=== PATIENT | female | born 1970 | race Caucasian/White ===

== ENCOUNTER 2017-05-01 12:31 | Inpatient (IN) | payer OTHER ==
[~2017-05-01] VITALS: Ht 165.1 cm; Wt 67.5 kg
[~2017-05-01 12:31] MED LIST: AMOXICILLIN250 MG PO; ASPIR 8181 M1 PO; ATIVAN0.5 MG PO; ATROVENT 00.5 MG/2.5 IH; Aspirin E.C. PO; BACTRIM,SEPT1 TABLET PO; BUTALB-CAFF-AC1 EACH PO; CENTANY30 GM TP; CLONAZEPAM0.5 MG PO; COUGH SYRU100 MG/5 M PO; Cipro PO; DAILY VITE1 EAC1 PO; DEPAKOTE ER500 MG PO; DEPAKOTE250 MG PO; DEPAKOTE500 MG PO; DILAUDID4 MG PO; DITROPAN XL15 MG PO; DIVALPROEX SOD500 M1 PO; DULCOLAX10 MG PR; DUONEB 2.5-0.5 M3 ML IH; FIORICET 50-301 EACH PO; FIORICET,ESG1 TABLET PO; FLEET ENEMA-AD118 ML PR; FLOMAX0.4 MG PO; FLONASE16 G1 BOTH NARES; FLORASTOR250 MG PO; Feosol PO; Flonase BOTH NARES; GABAPENTIN300 MG PO; GLUCOPHAGE1000 MG PO; Glucophage PO; HYDROCODON-ACE1 EAC7 PO; IBUPROFEN600 MG PO; IMITREX100 MG PO; IPRATR-ALBUTEROL3 ML AEROSOL; IPRATROPIU0.2 MG/1 M IH; IRON325 MG PO; LANTUS 10100 UNITS/ SC; LANTUS 3 M100 UNITS1 SC; LEVAQUIN500 MG PO; LEXAPRO10 MG PO; LORAZEPAM1 MG PO; MAALOX ADVANCE355 ML PO; MILK OF MAGN PO; MIRTAZAPINE15 MG PO; MIRTAZAPINE45 MG PO; MORPHINE SULFAT15 M1 PO; MUCUS RELIEF600 M1 PO; MYCOSTATIN 100,60 ML PO; NEURONTIN300 MG PO; NOVOLOG 10100 UNITS/ SC; Neurontin PO; ONGLYZA5 MG PO; PHILLIPS'400 MG/5 M PO; PREDNISONE5 MG PO; PRILOSEC20 MG PO; PROMETHAZINE HC25 M1 PO; PROTONIX20 MG PO; PROVENTIL HFA6.7 GM IH; PROVENTIL,2.5 MG/3 M IH; PROZAC20 MG PO; PROzac PO; PYRIDIUM200 MG PO; RELAFEN500 M1 PO; SERTRALINE HCL100 MG PO; SERTRALINE HCL50 MG PO; SINGULAIR10 MG PO; SPIRIVA1 INHALATI IH; ST. JOSEPH ASPI81 MG PO; Singulair PO; TESSALON PERLE100 MG PO; TRILAFON4 MG PO; TYLENOL REGULA325 MG PO; VALTREX50 MG/ML PO; ValTRex PO; ZESTRIL5 MG PO; ZOLPIDEM TARTRAT5 MG PO; Zestril,Prinivil PO; predniSONE PO
[2017-05-01 14:05] LABS: BASOPHIL COUNT 0.1 K/uL (0-0.1); EOSINOPHIL (%) 1.3 % (0-5); EOSINOPHIL COUNT 0.1 K/uL (0-0.3); IMMATURE GRANULOCYTE (%) 0.8 % (0.0-0.7); IMMATURE GRANULOCYTE COUNT 0.1 K/uL; INSTRUMENT ABS NEUTROPHIL CT 5.9 K/uL; LYMPHOCYTE COUNT 1.2 K/uL (1.0-2.8); MCH 29.6 PG (29.0-34.0); MCHC 30.8 G/DL (30.0-36.0); MCV 96.2 FL (83-99); MEAN PLAT.VOLUME 10.1 uM^3 (9.5-12.4); MONOCYTE (%) 1.2 % (3-12); MONOCYTE COUNT 0.1 K/uL (0-0.8); NEUTROPHIL (%) 79.8 % (45-76); NEUTROPHIL COUNT 5.9 K/uL (1.8-6.4); PLATELET COUNT 169 K/uL (156-360); RBC DIS.WIDTH-CV 13.8 % (11.8-14.6); RBC DIS.WIDTH-SD 48.6 % (39-53); RED BLOOD COUNT 3.95 M/uL (3.80-5.20); WHITE BLOOD COUNT 7.4 K/uL (4.1-10.2)
[2017-05-01 14:14] LABS: CHLORIDE 106 mEq/L (99-109); SODIUM 143 mEq/L (136-147)
[2017-05-01 14:16] LABS: GLUCOSE 117 mg/dL (70-99)
[2017-05-01 14:17] LABS: ANION GAP 9 MEQ/L (2-14)
[2017-05-01 14:18] LABS: TOTAL BILIRUBIN 0.2 mg/dL (0.0-1.0)
[2017-05-01 14:20] LABS: ALKALINE PHOSPHATASE 78 IU/L (3-129); GFR ESTIMATE (CALCULATED) > 59 mL/min/
[2017-05-01 14:21] LABS: UREA NITROGEN (BUN) 25 mg/dL (9-23)
[2017-05-01 14:26] LABS: TROP-I INTERPRETATION NEGATIVE; TROPONIN-I < 0.01 ng/mL (0.0-0.30)
[2017-05-01 15:34] LABS: ADD MIUA? YES; BILIRUBIN SMALL; BLOOD NEGATIVE; COLOR YELLOW ((YELLOW)); GLUCOSE (STRIP) NEGATIVE; KETONES 5; LEUKOCYTES TRACE; NITRITE NEGATIVE; PROTEIN (STRIP) NEGATIVE; SPECIFIC GRAVITY 1.028 (1.000-1.030); UROBILINOGEN 0.2 MG/DL (0.2-1.0)
[2017-05-01 15:48] LABS: BACTERIA RARE /HPF; EPITHELIAL CELLS 1+ /HPF; HYALINE CASTS 0-5 /LPF; MUCUS TRACE /LPF; RED BLOOD CELLS 0-5 /HPF (0-5); WHITE BLOOD CELLS 0-5 /HPF (0-5)
[2017-05-01 18:10] VITALS: BP 160/106
[2017-05-01 19:35] VITALS: BP 153/99
[2017-05-01] MEDS ORDERED: MELATIN3 MG PO (19:36)
[2017-05-01] MEDS ORDERED: PRILOSEC20 MG PO (19:37)
[2017-05-01] MEDS ORDERED: SPIRIVA18 MCG IH (19:39)
[2017-05-01] MEDS ORDERED: TOPAMAX100 MG PO (19:40)
[2017-05-01] MEDS ORDERED: ZOLOFT50 MG PO (19:41)
[2017-05-01] MEDS ORDERED: EXCEDRIN EXTRA1 EACH PO (19:43)
[2017-05-01] MEDS ORDERED: NEURONTIN100 MG PO (19:45)
[2017-05-01] MEDS ORDERED: IBUPROFEN400 MG PO (19:47)
[2017-05-01] MEDS ORDERED: TESSALON200 MG PO (19:48)
[2017-05-01] MEDS ORDERED: ADVAIR 100/501 DISK IH (19:48)
[2017-05-01] MEDS ORDERED: [UNRECOGNIZED DRUG - OTHER] PO (19:50)
[2017-05-01] MEDS ORDERED: MELOXICAM7.5 MG PO (19:53)
[2017-05-01] MEDS ORDERED: MUPIROCIN22 GM TP (19:56)
[2017-05-01 20:41] LABS: TROP-I INTERPRETATION NEGATIVE; TROPONIN-I < 0.01 ng/mL (0.0-0.30)
[2017-05-01 21:35] LABS: POINT-OF-CARE METER ID UU14188625
[2017-05-01 23:37] VITALS: BP 128/94
[2017-05-02 03:38] VITALS: BP 130/92
[2017-05-02 04:16] LABS: TROP-I INTERPRETATION NEGATIVE; TROPONIN-I < 0.01 ng/mL (0.0-0.30)
[2017-05-02 07:30] LABS: POINT-OF-CARE METER ID UU14188625
[2017-05-02 08:08] VITALS: BP 160/92
[2017-05-02 11:35] VITALS: BP 150/99
[2017-05-02 12:37] LABS: POINT-OF-CARE METER ID UU14188625
[2017-05-02 15:43] VITALS: BP 154/95
[2017-05-02 17:11] LABS: POINT-OF-CARE METER ID UU14188625
[2017-05-02 19:37] LABS: METH RESISTANT S AUREUS PCR NEGATIVE (NEGATIVE)
[2017-05-02 19:56] LABS: PROBE CHECK PASS; SPECIMEN PROCESSING CONTROL PASS
[2017-05-02 20:33] VITALS: BP 159/84
[2017-05-02 21:49] LABS: POINT-OF-CARE METER ID UU13113717
[2017-05-02 23:50] VITALS: BP 136/91
[2017-05-03 04:13] VITALS: BP 155/93
[2017-05-03 07:34] VITALS: BP 167/75
[2017-05-03 07:50] LABS: POINT-OF-CARE METER ID UU13113717
[2017-05-03 11:13] VITALS: BP 142/84
[2017-05-03 12:10] LABS: POINT-OF-CARE METER ID UU13113717
[2017-05-03 15:11] VITALS: BP 132/85
[2017-05-03 16:12] LABS: POINT-OF-CARE METER ID UU14188625
[2017-05-03 20:02] VITALS: BP 150/97
[2017-05-03 21:27] LABS: POINT-OF-CARE METER ID UU14188625
[2017-05-04 00:12] VITALS: BP 148/86
[2017-05-04 07:31] VITALS: BP 146/90
[2017-05-04 08:19] LABS: POINT-OF-CARE METER ID UU13113717
[2017-05-04 12:09] LABS: POINT-OF-CARE METER ID UU13113717
[2017-05-04 16:22] VITALS: BP 146/75
[2017-05-04 16:39] LABS: POINT-OF-CARE METER ID UU13113717
[2017-05-04 21:42] LABS: POINT-OF-CARE METER ID UU13113717
[2017-05-05 03:58] VITALS: BP 137/98
[2017-05-05 07:32] VITALS: BP 131/85
[2017-05-05 07:48] LABS: POINT-OF-CARE METER ID UU13113717
[2017-05-05 10:01] LABS: ANION GAP 10 MEQ/L (2-14); CHLORIDE 97 MEQ/L (99-109); GFR ESTIMATE (CALCULATED) > 59 mL/min/; GLUCOSE 115 mg/dL (70-99); POTASSIUM 4.5 MEQ/L (3.7-5.4); SAMPLE HEMOLYSIS CHECK 0; SAMPLE ICTERIC CHECK 0; SAMPLE LIPEMIA CHECK 0; SODIUM 140 MEQ/L (136-147); UREA NITROGEN (BUN) 30 mg/dL (9-23)
[2017-05-05 11:01] LABS: HEMATOCRIT 38.6 % (36.0-46.0); MCH 29.2 PG (29.0-34.0); MCHC 30.8 G/DL (30.0-36.0); MCV 94.6 FL (83-99); MEAN PLAT.VOLUME 10.7 uM^3 (9.5-12.4); PLATELET COUNT 191 K/uL (156-360); RBC DIS.WIDTH-CV 13.9 % (11.8-14.6); RED BLOOD COUNT 4.08 M/uL (3.80-5.20); WHITE BLOOD COUNT 14.3 K/uL (4.1-10.2)
[2017-05-05 16:20] VITALS: BP 112/68
[2017-05-05 17:41] LABS: POINT-OF-CARE METER ID UU14188625
[2017-05-05 19:41] VITALS: BP 118/80
[2017-05-05 23:42] VITALS: BP 130/91
[2017-05-06 04:00] VITALS: BP 130/91
[2017-05-06 07:44] LABS: POINT-OF-CARE METER ID UU14188625
[2017-05-06 07:48] VITALS: BP 164/100
[2017-05-06 11:48] LABS: POINT-OF-CARE METER ID UU14188625
[2017-05-06 15:50] VITALS: BP 125/73
[2017-05-06 16:59] LABS: POINT-OF-CARE METER ID UU14188625
[2017-05-06 23:47] VITALS: BP 126/76
[2017-05-07 06:38] LABS: EOSINOPHIL (%) 0.5 % (0-5); EOSINOPHIL COUNT 0.1 K/uL (0-0.3); HEMATOCRIT 35.2 % (36.0-46.0); IMMATURE GRANULOCYTE (%) 2.6 % (0.0-0.7); IMMATURE GRANULOCYTE COUNT 0.3 K/uL; INSTRUMENT ABS NEUTROPHIL CT 4.3 K/uL; LYMPHOCYTE COUNT 4.7 K/uL (1.0-2.8); MCH 29.6 PG (29.0-34.0); MCHC 30.7 G/DL (30.0-36.0); MCV 96.4 FL (83-99); MEAN PLAT.VOLUME 10.4 uM^3 (9.5-12.4); MONOCYTE (%) 9.9 % (3-12); NEUTROPHIL (%) 41.5 % (45-76); NEUTROPHIL COUNT 4.3 K/uL (1.8-6.4); PLATELET COUNT 177 K/uL (156-360); RBC DIS.WIDTH-CV 13.9 % (11.8-14.6); RBC DIS.WIDTH-SD 48.8 % (39-53); RED BLOOD COUNT 3.65 M/uL (3.80-5.20); WHITE BLOOD COUNT 10.4 K/uL (4.1-10.2)
[2017-05-07 07:01] LABS: ANION GAP 6 MEQ/L (2-14); CHLORIDE 97 MEQ/L (99-109); GFR ESTIMATE (CALCULATED) > 59 mL/min/; GLUCOSE 70 mg/dL (70-99); POTASSIUM 3.9 MEQ/L (3.7-5.4); SAMPLE HEMOLYSIS CHECK 0; SAMPLE ICTERIC CHECK 0; SAMPLE LIPEMIA CHECK 0; SODIUM 141 MEQ/L (136-147); UREA NITROGEN (BUN) 33 mg/dL (9-23)
[2017-05-07 08:01] VITALS: BP 106/78
[2017-05-07 11:51] LABS: POINT-OF-CARE METER ID UU14188625
[2017-05-07] MEDS ORDERED: PREDNISONE20 MG PO (12:12)
[2017-05-07] MEDS ORDERED: DOXYCYCLINE HY100 M3 PO (12:12)
[2017-05-07 17:11] LABS: POINT-OF-CARE METER ID UU14188625
== END 2017-05-07 18:42 | DRG 190 ==
LOC: EME 12:31 → EDOF 15:39 → 5SOUTH 15:39 → ENRESERV 15:47 → 5SOUTH 17:59
PROVIDERS: Emergency Medicine; Hospitalist; Internal Medicine; Nurse Practitioner Adult Health; Physician Assistant
DX: J44.0 Chronic obstructive pulmonary disease with (acute) lower respiratory infection (principal); J44.1 Chronic obstructive pulmonary disease with (acute) exacerbation; J96.21 Acute and chronic respiratory failure with hypoxia; Z99.81 Dependence on supplemental oxygen; F79 Unspecified intellectual disabilities; F41.9 Anxiety disorder, unspecified; Z87.891 Personal history of nicotine dependence; K21.9 Gastro-esophageal reflux disease without esophagitis; J20.9 Acute bronchitis, unspecified; E11.9 Type 2 diabetes mellitus without complications; Z79.4 Long term (current) use of insulin; R91.1 Solitary pulmonary nodule; G40.909 Epilepsy, unspecified, not intractable, without status epilepticus; E66.3 Overweight; Z68.24 Body mass index [BMI] 24.0-24.9, adult; F33.2 Major depressive disorder, recurrent severe without psychotic features; E78.5 Hyperlipidemia, unspecified; R45.851 Suicidal ideations; Z85.6 Personal history of leukemia; Z90.710 Acquired absence of both cervix and uterus; Z91.19 Patient's noncompliance with other medical treatment and regimen
CPT/HCPCS: 71010; 71260; 80048; 80053; 81003; 82948; 83880; 84484; 85025; 85027; 87040; 87070; 87077; 87186; 87205; 87641; 90686; 93005; 93306; 94640; 94640 76; 94644; 94667; 94668; 94799; 99202; 99281; 99285; J1650; J1815; J1956; J2920; J2930; J7512; J7644; Q0169

== ENCOUNTER 2017-05-07 15:38 | Inpatient (IN) | payer OTHER ==
[~2017-05-07] VITALS: Ht 165.1 cm; Wt 50.0 kg
[~2017-05-07 15:38] MED LIST changes: +ADVAIR 100/501 DISK IH; +DOXYCYCLINE HY100 M3 PO; +EXCEDRIN EXTRA1 EACH PO; +IBUPROFEN400 MG PO; +MELATIN3 MG PO; +MELOXICAM7.5 MG PO; +MUPIROCIN22 GM TP; +NEURONTIN100 MG PO; +PREDNISONE20 MG PO; +SPIRIVA18 MCG IH; +TESSALON200 MG PO; +TOPAMAX100 MG PO; +ZOLOFT50 MG PO; +[UNRECOGNIZED DRUG - OTHER] PO
[2017-05-07 18:59] VITALS: BP 132/95
[2017-05-07 19:03] VITALS: BP 132/95
[2017-05-07 20:37] LABS: POINT-OF-CARE METER ID UU14188576; POINT-OF-CARE USER ID ENVTLS63
[2017-05-08 06:35] LABS: POINT-OF-CARE METER ID UU14188576; POINT-OF-CARE USER ID ENVTLS63
[2017-05-08 07:41] VITALS: BP 130/81
[2017-05-08 11:57] LABS: POINT-OF-CARE METER ID UU14188576
[2017-05-08 15:24] VITALS: BP 130/69
[2017-05-08 16:43] LABS: POINT-OF-CARE METER ID UU14188576; POINT-OF-CARE USER ID BHSMEW
[2017-05-08 20:46] LABS: POINT-OF-CARE METER ID UU14188576; POINT-OF-CARE USER ID BHSMEW
[2017-05-09 06:43] LABS: POINT-OF-CARE METER ID UU14188576
[2017-05-09 12:26] LABS: POINT-OF-CARE METER ID UU14188576
[2017-05-09 15:50] VITALS: BP 134/75
[2017-05-09 17:15] LABS: POINT-OF-CARE METER ID UU14188576
[2017-05-09 20:38] LABS: POINT-OF-CARE METER ID UU14188576; POINT-OF-CARE USER ID ENVTLS63
[2017-05-10 06:23] LABS: POINT-OF-CARE METER ID UU14188576; POINT-OF-CARE USER ID ENVTLS63
[2017-05-10 06:41] LABS: POINT-OF-CARE METER ID UU14188576; POINT-OF-CARE USER ID ENVTLS63
[2017-05-10 07:11] LABS: POINT-OF-CARE METER ID UU14188576; POINT-OF-CARE USER ID ENVTLS63
[2017-05-10 07:43] VITALS: BP 126/68
[2017-05-10 15:54] VITALS: BP 108/72
[2017-05-10 21:35] LABS: POINT-OF-CARE METER ID UU14188576; POINT-OF-CARE USER ID ENVTLS63
[2017-05-11 06:18] LABS: POINT-OF-CARE METER ID UU14188576; POINT-OF-CARE USER ID ENVTLS63
[2017-05-11 09:21] VITALS: BP 99/66
[2017-05-11 12:01] LABS: POINT-OF-CARE METER ID UU14188576
[2017-05-11 15:33] VITALS: BP 102/63
[2017-05-11 17:05] LABS: POINT-OF-CARE METER ID UU14188576
[2017-05-11 20:41] LABS: POINT-OF-CARE METER ID UU14188576; POINT-OF-CARE USER ID BHSSMG
[2017-05-12 06:47] LABS: POINT-OF-CARE METER ID UU14188576
[2017-05-12 07:41] LABS: POINT-OF-CARE METER ID UU14188576
[2017-05-12 08:08] VITALS: BP 118/72
[2017-05-12] MEDS ORDERED: SERTRALINE HCL100 MG PO (09:02)
== END 2017-05-12 10:56 | DRG 885 ==
LOC: 1WEST 15:38 → ENRESERV 18:06 → 1WEST 18:47
PROVIDERS: Psychiatry & Neurology Psychiatry
DX: F33.2 Major depressive disorder, recurrent severe without psychotic features (principal); F43.23 Adjustment disorder with mixed anxiety and depressed mood; Z68.1 Body mass index [BMI] 19.9 or less, adult; K21.9 Gastro-esophageal reflux disease without esophagitis; R45.851 Suicidal ideations; J44.9 Chronic obstructive pulmonary disease, unspecified; E11.9 Type 2 diabetes mellitus without complications; Z99.81 Dependence on supplemental oxygen; Z87.891 Personal history of nicotine dependence; Z79.4 Long term (current) use of insulin
CPT/HCPCS: 82948; 94640; 94640 76; 94799; 97150 GO; 97165 GO; 99202

== ENCOUNTER 2018-01-21 19:27 | Inpatient (IN) | payer OTHER ==
[~2018-01-21] VITALS: Ht 165.1 cm; Wt 65.9 kg
[~2018-01-21 19:27] MED LIST changes: +IBUPROFEN200 M1 PO; -IBUPROFEN400 MG PO
[2018-01-21 20:15] LABS: HEMATOCRIT 37.4 % (36.0-46.0); MCH 28.9 PG (29.0-34.0); MCHC 32.1 G/DL (30.0-36.0); MCV 90.1 FL (83-99); PLATELET COUNT 132 K/uL (156-360); RBC DIS.WIDTH-CV 18.8 % (11.8-14.6); RBC DIS.WIDTH-SD 62.4 % (39-53); RED BLOOD COUNT 4.15 M/uL (3.80-5.20); WHITE BLOOD COUNT 7.8 K/uL (4.1-10.2)
[2018-01-21 20:26] LABS: CHLORIDE 100 mEq/L (99-109); POTASSIUM 4.8 mEq/L (3.7-5.4); SODIUM 141 mEq/L (136-147)
[2018-01-21 20:28] LABS: GLUCOSE 103 mg/dL (70-99)
[2018-01-21 20:32] LABS: CREATININE 0.7 mg/dL (0.6-1.3); GFR ESTIMATE (CALCULATED) > 59 mL/min/
[2018-01-21 20:33] LABS: UREA NITROGEN (BUN) 27 mg/dL (9-23)
[2018-01-21 20:36] LABS: TROP-I INTERPRETATION NEGATIVE; TROPONIN-I 0.02 ng/mL (0.0-0.30)
[2018-01-21] MEDS ORDERED: DEPAKOTE ER500 MG PO (21:33)
[2018-01-21] MEDS ORDERED: NOVOLOG PE100 UNITS/ SC (21:37)
[2018-01-21] MEDS ORDERED: TRAZODONE HCL50 MG PO (21:39)
[2018-01-21] MEDS ORDERED: PROVENTIL HFA6.7 GM IH (21:40)
[2018-01-21] MEDS ORDERED: SEROQUEL50 MG PO (21:41)
[2018-01-21] MEDS ORDERED: SEROQUEL12.5 MG PO (21:42)
[2018-01-21] MEDS ORDERED: CLONAZEPAM0.5 MG PO (21:43)
[2018-01-21] MEDS ORDERED: BUTALBITAL-APA1 EACH PO (21:45)
[2018-01-21] MEDS ORDERED: CYMBALTA60 MG PO (21:46)
[2018-01-21] MEDS ORDERED: NICODERM CQ1 EACH TD (21:47)
[2018-01-21] MEDS ORDERED: DUONEB 2.5-0.5 M3 ML AEROSOL (21:48)
[2018-01-21] MEDS ORDERED: FERROUS SULFAT325 MG PO (21:49)
[2018-01-21] MEDS ORDERED: IBUPROFEN600 MG PO (21:50)
[2018-01-21] MEDS ORDERED: LYRICA50 MG PO (21:51)
[2018-01-21] MEDS ORDERED: CYMBALTA30 MG PO (21:51)
[2018-01-21] MEDS ORDERED: SILVADENE20 GM TP (21:52)
[2018-01-21] MEDS ORDERED: BACTRIM,SEPT1 TABLET PO (21:52)
[2018-01-21 22:48] LABS: ALBUMIN 4.2 g/dL (3.2-4.8)
[2018-01-21 22:51] LABS: TOTAL PROTEIN 7.2 g/dL (6.4-8.3)
[2018-01-21 22:53] LABS: TOTAL BILIRUBIN 0.1 mg/dL (0.0-1.0)
[2018-01-21 22:54] LABS: ALKALINE PHOSPHATASE 90 IU/L (3-129)
[2018-01-21 22:56] LABS: AST (GOT) 21 IU/L (2-34)
[2018-01-21 22:57] LABS: D-DIMER ELISA < 150.00 ng/mLDDU (<230); LIPASE 14 U/L (1.0-51.0)
[2018-01-21 22:59] LABS: ALT (GPT) 26 IU/L (3-49)
[2018-01-22 00:28] VITALS: BP 118/79
[2018-01-22 03:23] LABS: TROP-I INTERPRETATION NEGATIVE; TROPONIN-I < 0.01 ng/mL (0.0-0.30)
[2018-01-22 05:21] VITALS: BP 123/76
[2018-01-22 08:00] VITALS: BP 124/83
[2018-01-22 08:31] LABS: HEMATOCRIT 37.4 % (36.0-46.0); HEMOGLOBIN 11.8 G/DL (11.9-15.5); MCH 28.5 PG (29.0-34.0); MCHC 31.6 G/DL (30.0-36.0); MCV 90.3 FL (83-99); RBC DIS.WIDTH-CV 18.7 % (11.8-14.6); RBC DIS.WIDTH-SD 62.4 % (39-53); RED BLOOD COUNT 4.14 M/uL (3.80-5.20); WHITE BLOOD COUNT 4.9 K/uL (4.1-10.2)
[2018-01-22 08:32] LABS: PLATELET COUNT 194 K/uL (156-360)
[2018-01-22 08:45] LABS: TROP-I INTERPRETATION NEGATIVE; TROPONIN-I < 0.01 ng/mL (0.0-0.30)
[2018-01-22] MEDS ORDERED: ATIVAN1 MG PO (08:52)
[2018-01-22 09:01] LABS: CHLORIDE 98 MEQ/L (99-109); CREATININE 0.6 MG/DL (0.6-1.3); GFR ESTIMATE (CALCULATED) > 59 mL/min/; POTASSIUM 4.8 MEQ/L (3.7-5.4); SODIUM 135 MEQ/L (136-147); UREA NITROGEN (BUN) 29 mg/dL (9-23)
[2018-01-22 09:05] LABS: GLUCOSE 210 mg/dL (70-99)
[2018-01-22 09:09] LABS: HEMOGLOBIN A1c (GLYCOHEMOGLOB) 5.7 % (Below 5.7)
[2018-01-22 11:04] VITALS: BP 116/73
[2018-01-22 19:59] VITALS: BP 130/78
[2018-01-23] VITALS (7 sets, daily range): BP systolic 115–140; BP diastolic 67–77
[2018-01-23 06:04] LABS: BASOPHIL (%) 0.1 % (0-1); EOSINOPHIL (%) 0 % (0-5); HEMATOCRIT 34.3 % (36.0-46.0); HEMOGLOBIN 10.7 G/DL (11.9-15.5); IMMATURE GRANULOCYTE (%) 0.5 % (0.0-0.7); LYMPHOCYTE (%) 15.6 % (15-42); LYMPHOCYTE COUNT 1.2 K/uL (1.0-2.8); MCH 28.2 PG (29.0-34.0); MCHC 31.2 G/DL (30.0-36.0); MCV 90.3 FL (83-99); MONOCYTE (%) 3.6 % (3-12); MONOCYTE COUNT 0.3 K/uL (0-0.8); NEUTROPHIL (%) 80.2 % (45-76); NEUTROPHIL COUNT 5.9 K/uL (1.8-6.4); PLATELET COUNT 190 K/uL (156-360); RBC DIS.WIDTH-CV 18.7 % (11.8-14.6); RBC DIS.WIDTH-SD 62.4 % (39-53); WHITE BLOOD COUNT 7.4 K/uL (4.1-10.2)
[2018-01-23 06:28] LABS: CHLORIDE 101 MEQ/L (99-109); CREATININE 0.5 MG/DL (0.6-1.3); GFR ESTIMATE (CALCULATED) > 59 mL/min/; GLUCOSE 167 mg/dL (70-99); POTASSIUM 4.4 MEQ/L (3.7-5.4); SODIUM 140 MEQ/L (136-147); UREA NITROGEN (BUN) 22 mg/dL (9-23)
[2018-01-24 06:38] LABS: BASOPHIL (%) 0.1 % (0-1); EOSINOPHIL (%) 0 % (0-5); HEMATOCRIT 34.2 % (36.0-46.0); HEMOGLOBIN 10.7 G/DL (11.9-15.5); IMMATURE GRANULOCYTE (%) 0.7 % (0.0-0.7); LYMPHOCYTE COUNT 1.8 K/uL (1.0-2.8); MCH 28.4 PG (29.0-34.0); MCHC 31.3 G/DL (30.0-36.0); MCV 90.7 FL (83-99); MONOCYTE (%) 4.4 % (3-12); MONOCYTE COUNT 0.4 K/uL (0-0.8); NEUTROPHIL (%) 73.8 % (45-76); NEUTROPHIL COUNT 6.4 K/uL (1.8-6.4); PLATELET COUNT 191 K/uL (156-360); RBC DIS.WIDTH-CV 19.2 % (11.8-14.6); RBC DIS.WIDTH-SD 63.5 % (39-53); RED BLOOD COUNT 3.77 M/uL (3.80-5.20); WHITE BLOOD COUNT 8.7 K/uL (4.1-10.2)
[2018-01-24 07:05] LABS: ALBUMIN 3.7 G/DL (3.2-4.8); ALKALINE PHOSPHATASE 66 IU/L (3-129); AST (GOT) 30 IU/L (2-34); CHLORIDE 100 MEQ/L (99-109); CREATININE 0.5 MG/DL (0.6-1.3); GFR ESTIMATE (CALCULATED) > 59 mL/min/; GLUCOSE 148 mg/dL (70-99); POTASSIUM 4.7 MEQ/L (3.7-5.4); SODIUM 141 MEQ/L (136-147); TOTAL BILIRUBIN 0.2 MG/DL (0.0-1.0); TOTAL PROTEIN 5.8 G/DL (6.4-8.3); UREA NITROGEN (BUN) 27 mg/dL (9-23)
[2018-01-24 07:11] LABS: ALT (GPT) 60 IU/L (3-49)
[2018-01-24 07:34] VITALS: BP 134/91
[2018-01-24 15:50] VITALS: BP 157/84
[2018-01-24 19:10] VITALS: BP 172/77
[2018-01-24 22:52] VITALS: BP 143/84
[2018-01-25 06:16] LABS: MCHC 30.8 G/DL (30.0-36.0); MCV 90.9 FL (83-99); PLATELET COUNT 214 K/uL (156-360); RBC DIS.WIDTH-SD 63.4 % (39-53); RED BLOOD COUNT 4.29 M/uL (3.80-5.20); WHITE BLOOD COUNT 8.1 K/uL (4.1-10.2)
[2018-01-25 06:40] LABS: CHLORIDE 98 MEQ/L (99-109); CREATININE 0.5 MG/DL (0.6-1.3); GFR ESTIMATE (CALCULATED) > 59 mL/min/; GLUCOSE 174 mg/dL (70-99); POTASSIUM 4.6 MEQ/L (3.7-5.4); SODIUM 139 MEQ/L (136-147); UREA NITROGEN (BUN) 22 mg/dL (9-23)
[2018-01-25 07:15] VITALS: BP 165/82
[2018-01-25 15:35] VITALS: BP 176/88
[2018-01-25 22:56] VITALS: BP 144/70
[2018-01-26 06:49] VITALS: BP 138/88
[2018-01-26 07:30] LABS: CHLORIDE 98 MEQ/L (99-109); CREATININE 0.5 MG/DL (0.6-1.3); GFR ESTIMATE (CALCULATED) > 59 mL/min/; GLUCOSE 156 mg/dL (70-99); POTASSIUM 4.6 MEQ/L (3.7-5.4); SODIUM 143 MEQ/L (136-147); UREA NITROGEN (BUN) 25 mg/dL (9-23)
[2018-01-26] MEDS ORDERED: DULERA 100 MCG/13 GM IH (11:46)
[2018-01-26] MEDS ORDERED: AMOX TR-K CLV1 EAC4 PO (11:46)
[2018-01-26] MEDS ORDERED: SPIRIVA RESPIMAT4 GM IH (11:46)
[2018-01-26] MEDS ORDERED: MEDROL DOSEPAK4 MG PO (11:46)
[2018-01-26] MEDS ORDERED: MUCINEX600 MG PO (11:46)
[2018-01-26 15:58] VITALS: BP 165/97
[2018-01-27 00:48] VITALS: BP 118/68
[2018-01-27 07:25] VITALS: BP 114/73
[2018-01-27 15:50] VITALS: BP 157/88
[2018-01-27 23:34] VITALS: BP 126/79
[2018-01-28 07:14] VITALS: BP 148/77
[2018-01-28 11:48] VITALS: BP 123/57
[2018-01-28 15:50] VITALS: BP 164/74
[2018-01-29 00:07] VITALS: BP 125/75
[2018-01-29 07:39] VITALS: BP 127/80
[2018-01-29] MEDS ORDERED: NOVOLOG 10100 UNITS/ SC ×2 (15:19→15:34)
[2018-01-29] MEDS ORDERED: LYRICA50 MG PO (15:30)
[2018-01-29] MEDS ORDERED: DULOXETINE HCL30 MG PO (15:30)
[2018-01-29] MEDS ORDERED: LEVEMIR100 UNIT/2 SC (15:30)
[2018-01-29] MEDS ORDERED: QUETIAPINE FUMA25 MG PO (15:30)
[2018-01-29] MEDS ORDERED: TRAMADOL HCL50 MG PO (15:30)
[2018-01-29] MEDS ORDERED: DULERA 100 MCG/13 GM IH (15:30)
[2018-01-29] MEDS ORDERED: TRAZODONE HCL50 MG PO (15:30)
[2018-01-29] MEDS ORDERED: QUETIAPINE FUMA50 MG PO (15:30)
[2018-01-29] MEDS ORDERED: FERROUS SULFAT325 MG PO (15:30)
[2018-01-29] MEDS ORDERED: DULOXETINE HCL60 MG PO (15:30)
[2018-01-29] MEDS ORDERED: BENZONATATE100 MG PO (15:30)
[2018-01-29] MEDS ORDERED: ALBUTEROL2.5 MG/0.5 AEROSOL (15:30)
[2018-01-29] MEDS ORDERED: SPIRIVA RESPIMAT4 GM IH (15:30)
[2018-01-29] MEDS ORDERED: DIVALPROEX SOD500 M1 PO (15:30)
[2018-01-29] MEDS ORDERED: BUTALB-APAP-CA1 EACH PO (15:30)
[2018-01-29] MEDS ORDERED: DUONEB 2.5-0.5 M3 ML AEROSOL (15:30)
[2018-01-29] MEDS ORDERED: MUCINEX600 MG PO (15:30)
[2018-01-29] MEDS ORDERED: IBUPROFEN400 MG PO (15:30)
[2018-01-29] MEDS ORDERED: LORAZEPAM1 MG PO (15:30)
[2018-01-29 15:49] VITALS: BP 163/83
[2018-01-30] MEDS ORDERED: PREDNISONE20 MG PO ×2 (12:15→12:18)
[2018-01-30] MEDS ORDERED: LORAZEPAM0.5 MG PO (12:15)
[2018-01-30] MEDS ORDERED: PREDNISONE10 MG PO (12:18)
[2018-01-30] MEDS ORDERED: DIVALPROEX SOD500 MG PO (12:26)
== END 2018-01-29 16:52 | disposition home or self-care (01) | DRG 190 ==
LOC: EME → EDBD 19:27 → EDOF 22:15 → 5EAST 22:15 → ENRESERV 22:17 → 5EAST 23:52
PROVIDERS: Hospitalist; Internal Medicine; Physician Assistant
DX: J44.1 Chronic obstructive pulmonary disease with (acute) exacerbation (principal); J96.21 Acute and chronic respiratory failure with hypoxia; J20.9 Acute bronchitis, unspecified; J44.0 Chronic obstructive pulmonary disease with (acute) lower respiratory infection; E11.9 Type 2 diabetes mellitus without complications; D69.6 Thrombocytopenia, unspecified; E78.5 Hyperlipidemia, unspecified; G40.909 Epilepsy, unspecified, not intractable, without status epilepticus; F25.9 Schizoaffective disorder, unspecified; I25.10 Atherosclerotic heart disease of native coronary artery without angina pectoris; F79 Unspecified intellectual disabilities; Z99.81 Dependence on supplemental oxygen; F17.200 Nicotine dependence, unspecified, uncomplicated; R91.1 Solitary pulmonary nodule; G43.909 Migraine, unspecified, not intractable, without status migrainosus; I10 Essential (primary) hypertension; Z91.5 Personal history of self-harm; Z86.14 Personal history of Methicillin resistant Staphylococcus aureus infection; F41.9 Anxiety disorder, unspecified
CPT/HCPCS: 71045; 71046; 71250; 80048; 80053; 80076; 82948; 83036; 83690; 84484; 85025; 85027; 85379; 87070; 87205; 93005; 94640; 94640 76; 94760; 94799; 99202; 99281; 99285; J0456; J0696; J1644; J1815; J1885; J2405; J2930; J3010; J7030; J7512

== ENCOUNTER 2018-01-29 21:38 | Observation (INO) | payer OTHER ==
[~2018-01-29] VITALS: Ht 165.1 cm; Wt 67.2 kg
[~2018-01-29 21:38] MED LIST changes: +ALBUTEROL2.5 MG/0.5 AEROSOL; +AMOX TR-K CLV1 EAC4 PO; +ATIVAN1 MG PO; +BENZONATATE100 MG PO; +BUTALB-APAP-CA1 EACH PO; +BUTALBITAL-APA1 EACH PO; +CYMBALTA30 MG PO; +CYMBALTA60 MG PO; +DULERA 100 MCG/13 GM IH; +DULOXETINE HCL30 MG PO; +DULOXETINE HCL60 MG PO; +DUONEB 2.5-0.5 M3 ML AEROSOL; +FERROUS SULFAT325 MG PO; +IBUPROFEN400 MG PO; +LEVEMIR100 UNIT/2 SC; +LYRICA50 MG PO; +MEDROL DOSEPAK4 MG PO; +MUCINEX600 MG PO; +NICODERM CQ1 EACH TD; +NOVOLOG PE100 UNITS/ SC; +QUETIAPINE FUMA25 MG PO; +QUETIAPINE FUMA50 MG PO; +SEROQUEL12.5 MG PO; +SEROQUEL50 MG PO; +SILVADENE20 GM TP; +SPIRIVA RESPIMAT4 GM IH; +TRAMADOL HCL50 MG PO; +TRAZODONE HCL50 MG PO
[2018-01-29 22:40] LABS: HEMATOCRIT 37.8 % (36.0-46.0); HEMOGLOBIN 12.2 G/DL (11.9-15.5); MCHC 32.3 G/DL (30.0-36.0); PLATELET COUNT 225 K/uL (156-360); RBC DIS.WIDTH-CV 18.6 % (11.8-14.6); RBC DIS.WIDTH-SD 61.3 % (39-53); WHITE BLOOD COUNT 15.3 K/uL (4.1-10.2)
[2018-01-29 22:51] LABS: CHLORIDE 98 mEq/L (99-109); POTASSIUM 4.3 mEq/L (3.7-5.4); SODIUM 143 mEq/L (136-147)
[2018-01-29 22:53] LABS: GLUCOSE 127 mg/dL (70-99)
[2018-01-29 22:57] LABS: CREATININE 0.7 mg/dL (0.6-1.3); GFR ESTIMATE (CALCULATED) > 59 mL/min/
[2018-01-29 22:58] LABS: UREA NITROGEN (BUN) 26 mg/dL (9-23)
[2018-01-29 23:03] LABS: TROP-I INTERPRETATION NEGATIVE; TROPONIN-I 0.01 ng/mL (0.0-0.30)
[2018-01-30 01:28] VITALS: BP 139/84
[2018-01-30 02:05] LABS: VALPROIC ACID (DEPAKOTE) 28.4 MCG/ML (50-100)
[2018-01-30 07:45] VITALS: BP 110/66
[2018-01-30] MEDS ORDERED: PREDNISONE20 MG PO ×2 (12:15→12:18)
[2018-01-30] MEDS ORDERED: LORAZEPAM0.5 MG PO (12:15)
[2018-01-30] MEDS ORDERED: PREDNISONE10 MG PO (12:18)
[2018-01-30] MEDS ORDERED: DIVALPROEX SOD500 MG PO (12:26)
[2018-01-30 12:36] VITALS: BP 113/69
== END 2018-01-30 16:09 | disposition home or self-care (01) ==
LOC: EME 21:38 → EDOF 23:27 → 5EAST 23:27 → ENRESERV 23:29 → 5EAST 01-30 01:14
PROVIDERS: Emergency Medicine; Hospitalist
DX: J96.11 Chronic respiratory failure with hypoxia (principal); Z99.81 Dependence on supplemental oxygen; J44.9 Chronic obstructive pulmonary disease, unspecified; D72.829 Elevated white blood cell count, unspecified; T38.0X5A Adverse effect of glucocorticoids and synthetic analogues, initial encounter; E11.65 Type 2 diabetes mellitus with hyperglycemia; Z79.4 Long term (current) use of insulin; I10 Essential (primary) hypertension; E78.5 Hyperlipidemia, unspecified; Z85.42 Personal history of malignant neoplasm of other parts of uterus; Z90.710 Acquired absence of both cervix and uterus; Z86.14 Personal history of Methicillin resistant Staphylococcus aureus infection; G40.909 Epilepsy, unspecified, not intractable, without status epilepticus; F25.9 Schizoaffective disorder, unspecified; F32.9 Major depressive disorder, single episode, unspecified; F41.9 Anxiety disorder, unspecified; Z87.891 Personal history of nicotine dependence
CPT/HCPCS: 71045; 80048; 80164; 82948; 83880; 84484; 85027; 93005; 94640; 94799; 99281; 99285; G0378; J1815; J7512